=== PATIENT | female | born 1995 ===

== ENCOUNTER 2019-10-26 15:10 | Inpatient (IN) | payer OTHER, SELFPAY ==
[2019-10-26 15:36] LABS: #Basophils 0.1 thou/uL (0.0-0.2); #Eosinphils 0.1 thou/uL (0.0-0.7); #Lymphocytes 4.5 thou/uL (1.20-3.40); #Monocytes 0.7 thou/uL (0.11-0.59); #Neutrophils 12.4 thou/uL (1.40-6.50); %Basophils 0.6 % (0.0-1.0); %Eosinophils 0.3 % (0.0-10.0); %Lymphocytes 25.5 % (21.0-51.0); %Neutrophils 69.6 % (42.0-75.0); Hemoglobin 13.3 g/dL (12.0-16.0); Mean Corpuscular HGB CONC 33.5 g/dL (32.0-36.0); Mean Corpuscular Hemoglobin 31.3 pg (27.0-31.0); Mean Corpuscular Volume 93.6 fL (78.0-98.0); Mean Platelet Volume 7.7 fL (7.4-10.4); Platelet Count 313 thou/uL (130-400); RBC Distribution Width 12.3 % (11.5-14.5); Red Blood Cell (RBC) Count 4.25 mill/uL (4.20-5.40); White Blood Cell (WBC) Count 17.8 thou/uL (4.8-10.8)
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
[2019-10-26 15:42] LABS: BHCG - Serum Negative (NEGATIVE); Pregs Control Background? CLEAR/WHITE (CLR/WHITE); Pregs Control Bar Appear? YES (CONTROL BAR)
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
[2019-10-26] MEDS ORDERED: Fentanyl 100 MCG/2 ML VIAL ONE (15:54)
[2019-10-26 15:55] LABS: ALT (SGPT) 241 U/L (8-55); AST (SGOT) 312 U/L (5-34); Albumin 3.8 g/dL (3.5-5.0); Alkaline Phosphatase 72 U/L (40-110); Anion Gap 12 mmol/L (10-20); BUN (Urea Nitrogen) 7 mg/dL (7.0-18.7); Bilirubin, Total 0.5 mg/dL (0.2-1.2); Calc. Creatinine Clearance 0 mL/min (70-130); Calcium 8.8 mg/dL (7.8-10.44); Carbon Dioxide 21 mmol/L (22-29); Chloride 109 mmol/L (98-107); Estimated GFR-MDRD Greater than 90; Globulin 2.5 g/dL (2.4-3.5); Glucose 108 mg/dL (70-105); Protein, Total 6.3 g/dL (6.0-8.3); Sodium 138 mmol/L (136-145)
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
[2019-10-26] MEDS ORDERED: Dextrose 5% in Water 1,000 ML IV PRN (16:41)
[2019-10-26] MEDS ORDERED: Ondansetron PF 4 MG/2 ML Vial IVP PRN (16:41)
[2019-10-26] MEDS ORDERED: Dextrose 50% Abboject 50 ML SYRINGE SLOW IVP PRN (16:41)
[2019-10-26] MEDS ORDERED: hydrALAZINE 20 MG/ML VIAL SLOW IVP PRN (16:41)
[2019-10-26] MEDS ORDERED: traMADol HCl 50 MG TAB PO PRN (16:44)
[2019-10-26 17:11] LABS: Hemoglobin 12.9 g/dL (12.0-16.0)
[2019-10-26] MEDS: Acetaminophen 500 MG TAB PO SCH ×2 (18:00→23:59)
[2019-10-26] MEDS: Sodium Chloride 0.9% 1,000 ML IV SCH (18:00)
[2019-10-26] MEDS: traMADol HCl 50 MG TAB PO PRN (18:20)
[2019-10-26 18:27] VITALS: BMI 35.3
[2019-10-26] MEDS: Famotidine 20 MG TAB PO SCH (21:02)
[2019-10-26] MEDS: Gabapentin 300 MG CAP PO SCH (21:02)
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
[2019-10-26] MEDS: Cyclobenzaprine 10 MG TAB PO PRN (23:59)
[2019-10-27] MEDS: Sodium Chloride 0.9% 1,000 ML IV SCH ×2 (00:37→11:48)
[2019-10-27] MEDS: Acetaminophen 500 MG TAB PO SCH ×4 (06:02→23:38)
[2019-10-27 06:30] LABS: #Eosinphils 0.1 thou/uL (0.0-0.7); #Lymphocytes 3.3 thou/uL (1.20-3.40); #Monocytes 0.8 thou/uL (0.11-0.59); #Neutrophils 6.2 thou/uL (1.40-6.50); %Basophils 0.2 % (0.0-1.0); %Eosinophils 0.9 % (0.0-10.0); %Lymphocytes 31.4 % (21.0-51.0); %Monocytes 7.8 % (0.0-10.0); %Neutrophils 59.8 % (42.0-75.0); Hemoglobin 11.3 g/dL (12.0-16.0); Mean Corpuscular Hemoglobin 30.7 pg (27.0-31.0); Mean Platelet Volume 7.5 fL (7.4-10.4); Platelet Count 218 thou/uL (130-400); RBC Distribution Width 12.4 % (11.5-14.5); Red Blood Cell (RBC) Count 3.68 mill/uL (4.20-5.40); White Blood Cell (WBC) Count 10.3 thou/uL (4.8-10.8)
[2019-10-27 06:49] LABS: Magnesium 1.8 mg/dL (1.6-2.6); Phosphorus 4.2 mg/dL (2.3-4.7)
[2019-10-27] MEDS: Famotidine 20 MG TAB PO SCH ×2 (08:48→21:07)
[2019-10-27] MEDS: Gabapentin 300 MG CAP PO SCH ×2 (08:48→21:07)
[2019-10-27] MEDS ORDERED: Senokot S 8.6-50 MG TAB PO SCH (13:00)
[2019-10-27] MEDS: traMADol HCl 50 MG TAB PO PRN (13:29)
[2019-10-27] MEDS: Polyethylene Glycol 3350 17 GM Packet PO SCH (13:33)
[2019-10-27 18:51] LABS: Hemoglobin 10.7 g/dL (12.0-16.0); Platelet Count 208 thou/uL (130-400)
[2019-10-27] MEDS: Senokot S 8.6-50 MG TAB PO SCH (21:07)
[2019-10-27] MEDS: Cyclobenzaprine 10 MG TAB PO PRN (22:33)
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
[2019-10-28 05:40] LABS: Hemoglobin 10.2 g/dL (12.0-16.0); Platelet Count 204 thou/uL (130-400)
[2019-10-28] MEDS: Acetaminophen 500 MG TAB PO SCH ×4 (06:29→23:56)
[2019-10-28] MEDS: Ferrous Sulfate 325 MG TAB PO SCH ×2 (08:32→17:47)
[2019-10-28] MEDS: Ascorbic Acid 500 mg Chewable Tablet PO SCH (08:32)
[2019-10-28] MEDS: Senokot S 8.6-50 MG TAB PO SCH ×2 (08:32→20:12)
[2019-10-28] MEDS: Famotidine 20 MG TAB PO SCH ×2 (08:33→20:12)
[2019-10-28] MEDS: Gabapentin 300 MG CAP PO SCH ×2 (08:33→20:12)
[2019-10-28] MEDS: Polyethylene Glycol 3350 17 GM Packet PO SCH (08:33)
[2019-10-28] MEDS: traMADol HCl 50 MG TAB PO PRN ×2 (12:38→18:35)
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
[2019-10-29] MEDS: Cyclobenzaprine 10 MG TAB PO PRN
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
[2019-10-29 04:53] LABS: #Eosinphils 0.2 thou/uL (0.0-0.7); #Lymphocytes 3.3 thou/uL (1.20-3.40); #Monocytes 0.6 thou/uL (0.11-0.59); #Neutrophils 3.6 thou/uL (1.40-6.50); %Basophils 0.4 % (0.0-1.0); %Eosinophils 2.5 % (0.0-10.0); %Monocytes 8.3 % (0.0-10.0); %Neutrophils 45.8 % (42.0-75.0); Hemoglobin 10.5 g/dL (12.0-16.0); Mean Corpuscular Hemoglobin 31.5 pg (27.0-31.0); Mean Corpuscular Volume 92.6 fL (78.0-98.0); Mean Platelet Volume 7.4 fL (7.4-10.4); Platelet Count 192 thou/uL (130-400); RBC Distribution Width 12.1 % (11.5-14.5); Red Blood Cell (RBC) Count 3.33 mill/uL (4.20-5.40); White Blood Cell (WBC) Count 7.8 thou/uL (4.8-10.8)
[2019-10-29] MEDS: Acetaminophen 500 MG TAB PO SCH ×2 (06:11→11:48)
[2019-10-29 07:49] VITALS: BP 97/85; TEMP 98.5
[2019-10-29] MEDS: Ferrous Sulfate 325 MG TAB PO SCH (10:13)
[2019-10-29] MEDS: Gabapentin 300 MG CAP PO SCH (10:13)
[2019-10-29] MEDS: Senokot S 8.6-50 MG TAB PO SCH (10:13)
[2019-10-29] MEDS: Ascorbic Acid 500 mg Chewable Tablet PO SCH (10:13)
[2019-10-29] MEDS: Famotidine 20 MG TAB PO SCH (10:13)
[2019-10-29] MEDS: Polyethylene Glycol 3350 17 GM Packet PO SCH (10:14)
[2019-10-29] MEDS: traMADol HCl 50 MG TAB PO PRN (11:48)
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
== END 2019-10-29 12:31 | disposition home or self-care (01) | DRG 205 ==
LOC: ERS 15:10 → SJJU 17:54
PROVIDERS: ADMIT Surgery; ATTEND Surgery
DX: S22.31XA Fracture of one rib, right side, initial encounter for closed fracture (principal); S36.116A Major laceration of liver, initial encounter; D62 Acute posthemorrhagic anemia; S20.211A Contusion of right front wall of thorax, initial encounter; S30.1XXA Contusion of abdominal wall, initial encounter; V49.9XXA Car occupant (driver) (passenger) injured in unspecified traffic accident, initial encounter; Y92.410 Unspecified street and highway as the place of occurrence of the external cause; Z88.8 Allergy status to other drugs, medicaments and biological substances; Z88.0 Allergy status to penicillin
CPT/HCPCS: 36415; 36416; 70450; 71260; 72125; 74177; 80053; 83735; 84100; 84703; 85014; 85018; 85025; 85049; 86850; 86900; 86901; 96361; 96374; G0390; J3010